=== PATIENT | female | born 2005 | race Two or more races ===

== ENCOUNTER 2024-03-25 12:47 | Emergency (ER) | payer MEDICAID, OTHER ==
[~2024-03-25] VITALS: Ht 160 cm; Wt 62.6 kg
[2024-03-25 14:24] VITALS: BP 110/63; PULSE 74; RESP 18; TEMP 98.4; O2SAT 97
[2024-03-25] MEDS ORDERED: IBUP-1454 PO (15:19)
== END 2024-03-25 15:26 | disposition home or self-care (01) ==
LOC: ER 12:47
DX: S46.812A Strain of other muscles, fascia and tendons at shoulder and upper arm level, left arm, initial encounter (principal); Z79.899 Other long term (current) drug therapy; V89.2XXA Person injured in unspecified motor-vehicle accident, traffic, initial encounter; Y93.I9 Activity, other involving external motion; Y92.89 Other specified places as the place of occurrence of the external cause; Y99.8 Other external cause status
CPT/HCPCS: 73000